=== PATIENT | male | born 1970 | race Caucasian/White ===

== ENCOUNTER 2023-12-08 12:34 | Outpatient (CLI) | payer BC ==
[2023-12-08 14:16] LABS: #Basophils 0.03 10x3/uL (0.0-0.2); #Eosinphils 0.23 10x3/uL (0.0-0.5); #Monocytes 0.79 10x3/uL (0.0-1.1); #Neutrophils 4.82 10x3/uL (1.5-8.4); %Basophils 0.4 % (0.0-2.0); %Monocytes 10.3 % (0.0-10.0); Hematocrit 39.4 % (38.8-50.0); Hemoglobin 14.4 g/dL (13.5-17.5); Mean Corpuscular HGB CONC 36.5 g/dL (32.0-36.0); Mean Corpuscular Volume 90.2 fL (81.2-95.1); Mean Platelet Volume 10.3 fL (7.4-10.4); Platelet Count 343 10x3/uL (150-450); RBC Distribution Width 11.4 % (11.5-14.5); Red Blood Cell (RBC) Count 4.37 10x6/uL (4.32-5.72); White Blood Cell (WBC) Count 7.7 10x3/uL (3.5-10.5)
== END 2023-12-08 12:35 | disposition home or self-care (01) ==
LOC: LABBT 12:34
PROVIDERS: ATTEND Orthopaedic Surgery Hand Surgery
DX: Z01.818 Encounter for other preprocedural examination (principal); M77.8 Other enthesopathies, not elsewhere classified; S63.8X2A Sprain of other part of left wrist and hand, initial encounter
CPT/HCPCS: 85025; 93005; 93010

== ENCOUNTER 2023-12-18 05:43 | Day surgery (SDC) | payer BC ==
[2023-12-17 11:44] VITALS: BMI 33.4
[2023-12-18] MEDS ORDERED: Sodium Chloride 0.9% 100 ML ONE (06:31)
[2023-12-18] MEDS ORDERED: CEFAZOLIN 2 GM VIAL ONE (06:31)
[2023-12-18] MEDS ORDERED: Lidocaine 1% MPF 2 ML VIAL ONE (06:31)
[2023-12-18] MEDS ORDERED: Midazolam HCl 2 mg/2 ml Vial ONE ×2 (06:40→06:58)
[2023-12-18] MEDS ORDERED: Bupivacaine PF 0.5% 30 ML VIAL ONE ×2 (06:40→09:06)
[2023-12-18] MEDS ORDERED: fentaNYL 50 mcg/mL 1 mL Vial ONE ×6 (06:40→12:35)
[2023-12-18] MEDS ORDERED: Ondansetron PF 4 MG/2 ML Vial ONE (06:58)
[2023-12-18] MEDS ORDERED: PROPOFOL 20 ML ONE ×2 (06:58→08:06)
[2023-12-18] MEDS ORDERED: PHENYLEPHRINE-NS 100 MCG/ML 10 ML SYRINGE ONE (06:58)
[2023-12-18] MEDS ORDERED: Glycopyrrolate 0.2 MG/ML 5 ML SYRINGE ONE (06:58)
[2023-12-18] MEDS ORDERED: fentaNYL PF 100 MCG/2 ML SYRINGE ONE (06:58)
[2023-12-18] MEDS ORDERED: Dexamethasone 20 MG/5 ML VIAL ONE (06:58)
[2023-12-18] MEDS ORDERED: Lidocaine 1% PF 5 ML VIAL ONE (06:58)
[2023-12-18] MEDS ORDERED: EPINEPHrine 1 MG/ML VIAL ONE (07:12)
[2023-12-18] MEDS ORDERED: Bacitracin Zinc Ointment 30 gm TUBE ONE (07:12)
[2023-12-18] MEDS ORDERED: Albuterol HFA (OR) 200 PUFF INH ONE (08:10)
[2023-12-18] MEDS ORDERED: ePHEDrine Sulfate 50 MG/10 ML VIAL ONE (08:39)
[2023-12-18] MEDS ORDERED: Ketorolac Tromethamine 30 MG (1 mL) VIAL ONE (12:09)
[2023-12-18] MEDS ORDERED: Ondansetron ODT 4 MG TAB ONE ×2 (14:01→14:03)
== END 2023-12-18 14:10 | disposition home or self-care (01) ==
LOC: SDC 05:43
PROVIDERS: ATTEND Orthopaedic Surgery Hand Surgery
PROC: 0RQP0ZZ Repair Left Wrist Joint, Open Approach (ICD-10-PCS; principal; 2023-12-18)
DX: S63.8X2A Sprain of other part of left wrist and hand, initial encounter (principal); M77.8 Other enthesopathies, not elsewhere classified
CPT/HCPCS: A6223; C1713; J0171; J0665; J1100; J1885; J2250; J2405; J2704; J3010; J3490; Q0162

== ENCOUNTER 2024-12-27 05:48 | Day surgery (SDC) | payer BC ==
[2024-12-16 08:43] VITALS: BMI 31.4
[2024-12-27] MEDS ORDERED: PROPOFOL 20 ML ONE (06:16)
[2024-12-27] MEDS ORDERED: fentaNYL PF 100 MCG/2 ML SYRINGE ONE (06:16)
[2024-12-27] MEDS ORDERED: CEFAZOLIN 2 GM VIAL ONE (06:24)
[2024-12-27] MEDS ORDERED: Bacitracin Zinc Ointment 30 gm TUBE ONE (06:25)
[2024-12-27] MEDS ORDERED: Scopolamine 1 mg/72 hour Patch ONE (06:34)
[2024-12-27] MEDS ORDERED: Lidocaine 1% PF 5 ML VIAL ONE (07:15)
[2024-12-27] MEDS ORDERED: Ropivacaine 0.5% HCl/PF (150 MG/30 ML VIAL) ONE (07:38)
[2024-12-27] MEDS ORDERED: Ketorolac Tromethamine 30 MG (1 mL) VIAL ONE (09:57)
== END 2024-12-27 12:30 | disposition home or self-care (01) ==
LOC: SDC 05:48
PROVIDERS: ATTEND Orthopaedic Surgery Hand Surgery
PROC: 0LB60ZZ Excision of Left Lower Arm and Wrist Tendon, Open Approach (ICD-10-PCS; principal; 2024-12-27)
PROC: 3E0T3BZ Introduction of Anesthetic Agent into Peripheral Nerves and Plexi, Percutaneous Approach (ICD-10-PCS; 2024-12-27)
DX: M65.932 Unspecified synovitis and tenosynovitis, left forearm (principal); M77.8 Other enthesopathies, not elsewhere classified; S63.092A Other subluxation of left wrist and hand, initial encounter; E78.00 Pure hypercholesterolemia, unspecified; Z98.52 Vasectomy status; X58.XXXA Exposure to other specified factors, initial encounter
CPT/HCPCS: C1713; J0169; J0665; J1100; J1885; J2250; J2704; J2795; Q0162